=== PATIENT | male | born 1985 ===

== ENCOUNTER → 2016-03-10 | Outpatient (CLI) | payer OTHER ==
--- NOTE | 2016-03-10 10:59 | DX ---
Left Ankle 3 Views History: Fell rock climbing with pain. Comparison: None available. Findings: No fracture is identified. Irregular contour of the dorsal talus appears to be related to a talar beak, a normal variant. Alignment is normal. Bone mineralization is normal. The talar dome an d ankle mortise are intact. There is extensive lateral and mild medial soft tissue swelling. There is a small joint effusion. Impression: Soft tissue swelling and joint effusion with no acute osseous findings.
== END ==
LOC: BMCIMAGING 10:25
PROVIDERS: ATTEND Family Medicine
DX: M79.89 Other specified soft tissue disorders (principal); M25.472 Effusion, left ankle